=== PATIENT | female | born 1990 | race Caucasian/White ===

== ENCOUNTER 2017-01-05 11:46 | Inpatient (IN) | payer OTHER ==
[2017-01-05 12:31] VITALS: BMI 25.0
--- NOTE | 2017-01-05 12:59 | HP ---
COWS - Scale Resting Pulse: 2= [place] 101-120 Sweatin=Flushed/Facial Moisture Restless Observation: 3= Extraneous Movement Pupil Size: 0= Normal to Room Light Bone or Joint Aches: 2= Severe Diffuse Aches Runny Nose/ Eye Tearin= Runny Nose/Eyes GI Upset > 30mins: 3= Vomiting/Diarrhea Tremor Observation: 2= Slight Tremor Visible Yawning Observation: 1= 1-2x During Session Anxiety or Irritability: 2=Irritable/Anxious Goose Flesh Skin: 0=Smooth Skin COWS Score: 19 CIWA Score - CIWA Score Nausea/Vomitin Muscle Tremors: 3 Anxiety: 4-Mod. Anxious/Guarded Agitation: 3 Paroxysmal Sweats: 3 Orientation: 0-Oriented Tacttile Disturbances: 2-Mild Itch/Numbness/Burn Auditory Disturbances: 0-None Visual Disturbances: 0-None Headache: 0-None Present CIWA-Ar Total Score: 20 Admission ROS S - HPI Chief Complaint: "I have hit rock bottom and I need to get better for myself and for my father who has Stage 4 Cancer". Pt. is here to Detox from Heroin and Xanax. Allergies/Adverse Reactions: Allergies Allergy/AdvReac Type Severity Reaction Status Date / Time No Known Allergies Allergy Verified 01/05/17 12:35 History of Present Illness: Pt. is a 26 YO female here to detox from Heroin and Xanax (prescribed - patient reports that she takes more than prescribed on some days and tends to run out of monthly amount prematurely). Patient has had 1 previous Detox admission at [facility] (03/2016). Longest period of sobriety in recent past: 1 year (2014). Exam Limitations: No Limitations - Ebola screening Have you traveled outside of the country in the last 21 days: No Have you had contact with anyone from an Ebola affected area: No Have you been sick,other than usual withdrawal symptoms: No Do you have a fever: No - Review of Systems Constitutional: Chills, Diaphoresis, Fever, Malaise, Night Sweats, Changes in sleep, Other (Weight Gain:approx. 25 lbs. over last 8 months.) EENT: reports: No Symptoms Reported Respiratory: reports: No Symptoms reported Cardiac: reports: Palpitations GI: reports: Constipated, Nausea, Vomiting, Abdominal cramping : reports: No Symptoms Reported Musculoskeletal: reports: Joint Pain, Joint Stiffness Integumentary: reports: Sweating Neuro: reports: Headache, Tremors Endocrine: reports: No Symptoms Reported Hematology: reports: No Symptoms Reported Psychiatric: reports: Judgement Intact, Mood/Affect Appropiate, Orientated x3, Anxious (Takes Xanax.), Depressed (No Specific medication.), other (ADD - Takes Adderrall.) Other Systems: Reviewed and Negative Patient History - Patient Medical History Hx Anemia: No Hx Asthma: No Hx Chronic Obstructive Pulmonary Disease (COPD): No Hx Cancer: No Hx Cardiac Disorders: No Hx Congestive Heart Failure: No Hx Hypertension: No Hx Hypercholesterolemia: No Hx Pacemaker: No HX Cerebrovascular Accident: No Hx Seizures: No Hx Dementia: No Hx Diabetes: No Hx Gastrointestinal Disorders: No Hx Liver Disease: No Hx Genitourinary Disorders: No Hx Sexually Transmitted Disorders: No Hx Renal Disease (ESRD): No Hx Thyroid Disease: No Hx Human Immunodeficiency Virus (HIV): No (LAST TESTED: 03/2016: NEGATIVE) Hx Hepatitis C: No (LAST TESTED: 03/2016: NEGATIVE) Hx Depression: Yes (No Medication.) Hx Suicide Attempt: No (PATIENT DENIES CURRENT SI / HI.) Hx Bipolar Disorder: No Hx Schizophrenia: No Other Medical History: ADD - Takes Adderrall. - Patient Surgical History Past Surgical History: No Hx Neurologic Surgery: No Hx Cataract Extraction: No Hx Cardiac Surgery: No Hx Lung Surgery: No Hx Breast Surgery: No Hx Breast Biopsy: No Hx Abdominal Surgery: No Hx Appendectomy: No Hx Cholecystectomy: No Hx Genitourinary Surgery: No Hx Section: No Hx Orthopedic Surgery: No Hx Hysterectomy: No Anesthesia Reaction: No - PPD History Previous Implant?: Yes Documented Results: Negative w/proof Date: 04/02/16 Results: 0 mm PPD to be Administered?: No - Reproductive History Patient is a Female of Child Bearing Age (11 -55 yrs old): Yes Last Menstrual Period: 01/02/17 Patient : No - Smoking Cessation Smoking history: Current every day smoker Have you smoked in the past 12 months: Yes Aproximately how many cigarettes per day: 10 Cigars Per Day: 0 Hx Chewing Tobacco Use: No Initiated information on smoking cessation: No 'Breaking Loose' booklet given: 01/05/17 (GIVEN ON UNIT.) - Substance & Tx. History Hx Alcohol Use: No Hx Substance Use: Yes Substance Use Type: Heroin, Tranquilizers Hx Substance Use Treatment: Yes (1 Previous Detox admission at [facility] (03/2016). [facility] (2013).) - Substances Abused Heroin Route: Injection Frequency: Daily Amount used: 10 Bags. Age of first use: 22 Date of Last Use: 01/05/17 Alprazolam (Xanax) Route: Oral Frequency: Daily Amount used: 8 MG Age of first use: 24 Date of Last Use: 01/05/17 Family Disease History - Family Disease History Family Disease History: CA: Father (ALCOHOL; Rectal Ca.), Other: Father Admission Physical Exam S - Vital Signs Vital Signs: Vital Signs - 24 hr 01/05/17 12:25 Temperature 96.9 F L Pulse Rate 106 H Respiratory 20 Rate Blood Pressure 129/80 - Physical General Appearance: Yes: Nourished, Appropriately Dressed, Mild Distress, Tremorous, Sweating, Anxious HEENTM: Yes: Hearing grossly Normal, Normocephalic, Normal Voice, LOUIE, Pharynx Normal Respiratory: Yes: Chest Non-Tender, Lungs Clear, No Respiratory Distress Neck: Yes: No masses,lesions,Nodules, Supple, Trachea in good position Breast: Yes: Breast Exam Deferred Cardiology: Yes: Regular Rhythm, Regular Rate, S1, S2 Abdominal: Yes: Normal Bowel Sounds, Non Tender, Flat, Soft Genitourinary: Yes: Within Normal Limits Back: Yes: Normal Inspection Musculoskeletal: Yes: Gait Steady, Joint Stiffness Extremities: Yes: Tremors Neurological: Yes: Fully Oriented, Alert, Normal Mood/Affect, Normal Response Integumentary: Yes: Normal Color, Warm, Track Esquivel (Noted on Bilateral Forearms. Erythema and swelling noted at both sites. No bleeding or unusual discharge noted.) Lymphatic: Yes: Within Normal Limits - Diagnostic (1) Nicotine dependence Current Visit: Yes Status: Chronic Qualifiers: Nicotine product type: cigarettes Substance use status: uncomplicated Qualified Code(s): F17.210 - Nicotine dependence, cigarettes, uncomplicated (2) Abscess of forearm Current Visit: Yes Status: Acute Comment: Bilateral Forearms. (3) History of anxiety Current Visit: Yes Status: Chronic (4) ADHD (attention deficit hyperactivity disorder) Current Visit: Yes Status: Chronic Qualifiers: Attention deficit-hyperactivity disorder type: unspecified Qualified Code(s): F90.9 - Attention-deficit hyperactivity disorder, unspecified type (5) Opioid dependence with withdrawal Current Visit: Yes Status: Acute (6) Sedative, hypnotic or anxiolytic dependence with withdrawal, uncomplicated Current Visit: Yes Status: Acute Cleared for Admission [facility] - Detox or Rehab [facility] Level of Care: Medically Managed (PATIENT ADVISED TO FOLLOW-UP AFTER DISCHARGE FROM DETOX WITH SCIENTIFIC INVESTIGATOR FOR GENERAL MEDICAL ASSESSMENT AND WITH PSYCHIATRIST FOR HISTORY OF XANAX USE.) Detox Regimen/Protocol: Methadone/Valium [facility] Breath Alcohol Content Breath Alcohol Content: 0 Urine Pregancy Test - Result Urine Test Results: Negative- NO Line Present Urine Drug Screen - Results Drug Screen Negative: No Urine Drug Screen Results: MARQUES-Cocaine, OPI-Opiates, BZO-Benzodiazepines, TCA- Tricyclic Antidepress, OXY-Oxycodone
[2017-01-05] MEDS ORDERED: P-EPHED 60MG/TRIPROLIDI 2.5MG TABLET PO PRN (13:24)
[2017-01-05] MEDS ORDERED: NICOTINE POLACRILEX 2 MG GUM BUC PRN (13:24)
[2017-01-05] MEDS ORDERED: MENTHOL/PHENOL 1 EACH UD MM PRN (13:24)
[2017-01-05] MEDS ORDERED: ACETAMINOPHEN 325 MG TABLET (FP) PO PRN (13:24)
[2017-01-05] MEDS ORDERED: METHADONE HCL 10 MG TABLET (FOR DETOX USE ONLY) PO ONE ×2 (13:24→23:00)
[2017-01-05] MEDS ORDERED: MAGNESIUM CITRATE 300 ML BOTTLE PO PRN (13:24)
[2017-01-05] MEDS ORDERED: diphenhydrAMINE HCL 50 MG CAPSULE PO PRN (13:24)
[2017-01-05] MEDS ORDERED: diazePAM 5 MG TABLET PO ONE (13:24)
[2017-01-05] MEDS ORDERED: guaiFENesin/D-METHORPHAN HB 10 ML UNIT-DOSE CUPS PO PRN (13:24)
[2017-01-05] MEDS ORDERED: MAGNESIUM HYDROX 2400MG/30ML ORAL SUSPENSION 30 ML CUP PO PRN (13:24)
[2017-01-05] MEDS ORDERED: LOPERAMIDE HCL 2 MG CAPSULE PO PRN (13:24)
[2017-01-05] MEDS ORDERED: BACITRACIN 15 GM TUBE TOPICAL OINTMENT TP SCH (13:30)
[2017-01-05] MEDS: SULFAMETHOXAZOLE/TRIMETHOPRIM 800MG/160MG D.S. TABLET PO SCH ×2 (14:25→22:12)
[2017-01-05] MEDS: diazePAM 5 MG TABLET PO SCH ×2 (14:27→22:12)
[2017-01-05] MEDS: NICOTINE 21 MG/24 HOURS TOPICAL PATCH TD SCH (14:31)
--- NOTE | 2017-01-05 14:57 | CONSULT ---
[facility] Psychiatric Consult - Data Date of interview: 01/05/17 Admission source: [facility] Identifying data: Ms Mendez is a 26 years old single female, unemployed on food stamp, homeless seeking detox treatment for heroin and xanax Substance Abuse History: Reports history of heroin and xanax use. Started using heroin at age 22, consumes 10 bags daily. Last used on 01/05/17. Started using xanax at age 24, consumes 8 mg daily. Last used on 01/05/17 Medical History: Unremarkable. Smokes 10 cigarettes daily Psychiatric History: Reports being diagnosed with ADHD as a girl but did not start taking medication(Adderall) for it till 5-6 years ago. Reports being diagnosed with MDD at age 17 and was prescribed Prozac which she stopped taking on her own. At present, report no OPD care but takes Adderall XR 30 mg po daily prescribed by her primary care physician. Denies previous psychiatric hospitalization or suicidal attempt. At present, reports feeling anxious and sleeping poorly Physical/Sexual Abuse/Trauma History: Denies history of emotional, physical or sexual abuse as well as DV relationship Additional Comment: No criminal history Mental Status Exam - Mental Status Exam Alert and Oriented to: Time, Place, Person Cognitive Function: Fair Patient Appearance: Well Groomed Mood: Anxious, Euthymic Affect: Appropriate Patient Behavior: Cooperative Speech Pattern: Clear Voice Loudness: Normal Thought Process: Intact, Goal Oriented Thought Disorder: Not Present Hallucinations: Denies Suicidal Ideation: Denies Homicidal Ideation: Denies Insight/Judgement: Poor Sleep: Poorly Appetite: Good Muscle strength/Tone: Normal Gait/Station: Normal Psychiatric Findings - Problem List ([place] 1, 2,3) (1) ADHD (attention deficit hyperactivity disorder) Current Visit: Yes Status: Chronic Qualifiers: Attention deficit-hyperactivity disorder type: unspecified Qualified Code(s): F90.9 - Attention-deficit hyperactivity disorder, unspecified type (2) MDD (major depressive disorder) Current Visit: Yes Status: Acute (3) Opioid dependence with withdrawal Current Visit: Yes Status: Acute (4) Sedative, hypnotic or anxiolytic dependence with withdrawal, uncomplicated Current Visit: Yes Status: Acute (5) Nicotine dependence Current Visit: Yes Status: Chronic Qualifiers: Nicotine product type: cigarettes Substance use status: uncomplicated Qualified Code(s): F17.210 - Nicotine dependence, cigarettes, uncomplicated - Initial Treatment Plan Initial Treatment Plan: 1) Start Ritalin 5 mg po daily and Ambien 10 mg po HS prn for insomnia. 2) Continue inpatient detoxification
[2017-01-05] MEDS: diazePAM 5 MG TABLET PO PRN (19:20)
[2017-01-05 20:08] LABS: URINE APPEARANCE CLEAR; URINE BILIRUBIN NEGATIVE (NEGATIVE); URINE COLOR YELLOW; URINE GLUCOSE (UA) NEGATIVE (NEGATIVE); URINE KETONE NEGATIVE (NEGATIVE); URINE LEUK ESTERASE NEGATIVE (NEGATIVE); URINE NITRITE NEGATIVE (NEGATIVE); URINE PROTEIN NEGATIVE (NEGATIVE); URINE UROBILINOGEN NEGATIVE E.U./dl (0.2-1.0)
[2017-01-05 20:10] LABS: URINE BLOOD 1+ (NEGATIVE)
[2017-01-05 20:15] LABS: CALCIUM OXALATE CRYSTALS FEW /hpf (NONE SEEN); URINE BACTERIA RARE /hpf (NONE SEEN); URINE MUCUS FEW; URINE RBC 2 /hpf (0-3); URINE WBC 4 /hpf (3-5)
[2017-01-05] MEDS ORDERED: BACITRACIN 0.9 GM PACKET ONE (21:12)
[2017-01-05] MEDS: IBUPROFEN 400 MG TABLET (FP) PO PRN (21:42)
[2017-01-05] MEDS: BACITRACIN 15 GM TUBE TOPICAL OINTMENT TP SCH (22:11)
[2017-01-05] MEDS: DOCUSATE SODIUM 100 MG CAPSULE (FP) PO SCH (22:12)
[2017-01-05] MEDS: THIAMINE HCL 100 MG TABLET (FP) PO SCH (22:12)
[2017-01-05] MEDS: ZOLPIDEM TARTRATE 5 MG TABLET PO PRN (22:15)
[2017-01-06] MEDS: diazePAM 5 MG TABLET PO PRN ×3 (01:11→17:28)
[2017-01-06] MEDS: diazePAM 5 MG TABLET PO SCH ×3 (05:34→22:06)
[2017-01-06] MEDS ORDERED: METHADONE HCL 10 MG TABLET (FOR DETOX USE ONLY) PO SCH (10:00)
[2017-01-06] MEDS ORDERED: BACITRACIN 0.9 GM PACKET ONE (10:04)
--- NOTE | 2017-01-06 10:09 | PN ---
[facility] CIWA - CIWA Score Nausea/Vomitin Muscle Tremors: 3 Anxiety: 3 Agitation: 3 Paroxysmal Sweats: 1-Minimal Palms Moist Orientation: 0-Oriented Tacttile Disturbances: 1-Very Mild Itch/Numbness Auditory Disturbances: 1-Very Mild Visual Disturbances: 1-Very Mild Sensitivity Headache: 2-Mild CIWA-Ar Total Score: 18 BHS COWS - Scale Resting Pulse: 1= [place] 81-100 Sweatin= Chills/Flushing Restless Observation: 3= Extraneous Movement Pupil Size: 1= Pupils >than Normal Bone or Joint Aches: 2= Severe Diffuse Aches Runny Nose/ Eye Tearin= Runny Nose/Eyes GI Upset > 30mins: 3= Vomiting/Diarrhea Tremor Observation of Outstretched Hands: 2= Slight Tremor Visible Yawning Observation: 1= 1-2x During Session Anxiety or Irritability: 2=Irritable/Anxious Goose Flesh Skin: 0=Smooth Skin COWS Score: 18 [facility] Progress Note (SOAP) Subjective: ALERT,IRRITABLE,ANXIOUS,INTERRUPTED SLEEP,TREMOR,PAIN IN THE BODY AND BACK Objective: 01/06/17 10:07 Vital Signs Temperature 98.1 F 01/06/17 06:00 Pulse Rate 84 01/06/17 06:00 Respiratory Rate 18 01/06/17 06:00 Blood Pressure 91/59 01/06/17 06:00 O2 Sat by Pulse Oximetry (%) EKG NSR,NORMAL ECG Laboratory Last Values Urine Color Yellow 01/05/17 16:00 Urine Appearance Clear 01/05/17 16:00 Urine pH 5.0 (5.0-8.0) D 01/05/17 16:00 Ur Specific [place] 1.025 (1.005-1.025) 01/05/17 16:00 Urine Protein Negative (NEGATIVE) 01/05/17 16:00 Urine Glucose (UA) Negative (NEGATIVE) 01/05/17 16:00 Urine Ketones Negative (NEGATIVE) 01/05/17 16:00 Urine Blood 1+ (NEGATIVE) H 01/05/17 16:00 Urine Nitrite Negative (NEGATIVE) 01/05/17 16:00 Urine Bilirubin Negative (NEGATIVE) 01/05/17 16:00 Urine Urobilinogen Negative E.U./dl (0.2-1.0) 01/05/17 16:00 Ur Leukocyte Esterase Negative (NEGATIVE) 01/05/17 16:00 Urine RBC 2 /hpf (0-3) 01/05/17 16:00 Urine WBC 4 /hpf (3-5) 01/05/17 16:00 Ur Epithelial Cells Few /hpf (FEW) 01/05/17 16:00 Calcium Oxalate Crystal Few /hpf (NONE SEEN) 01/05/17 16:00 Urine Bacteria Rare /hpf (NONE SEEN) 01/05/17 16:00 Urine Mucus Few 01/05/17 16:00 LABS PENDING Assessment: 01/06/17 10:08 WITHDRAWAL SYMPTOM Plan: CONTINUE DETOX
[2017-01-06 10:17] LABS: MCH 29.6 pg (25.7-33.7); MCHC 33.8 g/dl (32.0-36.0); MEAN CELL VOLUME 87.5 fl (80-96); MEAN PLT VOLUME 7.5 fl (7.5-11.1); PLATELET COUNT 316 K/MM3 (134-434)
[2017-01-06] MEDS: METHYLPHENIDATE HCL 5 MG TABLET PO SCH (10:30)
[2017-01-06 10:31] LABS: ALBUMIN 3.7 g/dl (3.4-5.0); ANION GAP 9 (8-16); BILIRUBIN,TOTAL 0.3 mg/dL (0.2-1.0); CO2 24 mmol/L (21-32); GLUCOSE,RANDOM 105 mg/dL (74-106); SGOT/AST 20 U/L (15-37); SGPT/ALT 31 U/L (12-78); TOT PROT 7.6 g/dl (6.4-8.2)
[2017-01-06] MEDS: DOCUSATE SODIUM 100 MG CAPSULE (FP) PO SCH ×2 (10:31→22:08)
[2017-01-06] MEDS: NICOTINE 21 MG/24 HOURS TOPICAL PATCH TD SCH (10:31)
[2017-01-06] MEDS: BACITRACIN 15 GM TUBE TOPICAL OINTMENT TP SCH ×2 (10:31→22:07)
[2017-01-06] MEDS: SULFAMETHOXAZOLE/TRIMETHOPRIM 800MG/160MG D.S. TABLET PO SCH ×2 (10:31→22:06)
[2017-01-06] MEDS: PRENATAL VITAMINS W/ FOLIC ACID TABLET (FP) PO SCH (10:31)
[2017-01-06 10:32] LABS: ALK PHOS 143 U/L (45-117); CALCIUM 9.1 mg/dL (8.5-10.1); CREATININE 0.6 mg/dL (0.55-1.02)
[2017-01-06] MEDS: cloNIDine HCL 0.1 MG TABLET PO SCH ×2 (11:40→22:06)
--- NOTE | 2017-01-06 14:23 | EKG ---
Test Reason : Blood Pressure : / mmHG Vent. Rate : 094 BPM Atrial Rate : 094 BPM P-R Int : 128 ms QRS Dur : 076 ms QT Int : 358 ms P-R-T Axes : 025 -18 030 degrees QTc Int : 447 ms NORMAL SINUS RHYTHM MINIMAL VOLTAGE CRITERIA FOR LVH, MAY BE NORMAL VARIANT BORDERLINE ECG NO PREVIOUS ECGS AVAILABLE Confirmed by LALO EMANUEL MD ([id number]) on 01/06/2017 2:23:06 PM Referred By: Confirmed By:LALO EMANUEL MD
[2017-01-06] MEDS: MAG HYDROX/AL HYDROX/SIMETH 30 ML UNIT-DOSE CUP PO PRN (17:09)
[2017-01-06] MEDS: ZOLPIDEM TARTRATE 5 MG TABLET PO PRN (22:06)
[2017-01-06] MEDS: THIAMINE HCL 100 MG TABLET (FP) PO SCH (22:06)
[2017-01-07] MEDS ORDERED: BACITRACIN 0.9 GM PACKET ONE (09:09)
[2017-01-07] MEDS: cloNIDine HCL 0.1 MG TABLET PO SCH ×2 (10:06→22:09)
[2017-01-07] MEDS: PRENATAL VITAMINS W/ FOLIC ACID TABLET (FP) PO SCH (10:06)
[2017-01-07] MEDS: DOCUSATE SODIUM 100 MG CAPSULE (FP) PO SCH ×2 (10:06→22:11)
[2017-01-07] MEDS: SULFAMETHOXAZOLE/TRIMETHOPRIM 800MG/160MG D.S. TABLET PO SCH ×2 (10:06→22:09)
[2017-01-07] MEDS: METHADONE HCL 5 MG TABLET (FOR DETOX USE ONLY) PO SCH (10:07)
[2017-01-07] MEDS: BACITRACIN 15 GM TUBE TOPICAL OINTMENT TP SCH ×2 (10:07→22:09)
[2017-01-07] MEDS: METHYLPHENIDATE HCL 5 MG TABLET PO SCH (10:07)
[2017-01-07] MEDS: NICOTINE 21 MG/24 HOURS TOPICAL PATCH TD SCH (10:08)
[2017-01-07] MEDS: diazePAM 5 MG TABLET PO SCH ×2 (10:11→22:09)
--- NOTE | 2017-01-07 11:02 | PN ---
[facility] CIWA - CIWA Score Nausea/Vomitin Muscle Tremors: 3 Anxiety: 3 Agitation: 2 Paroxysmal Sweats: 1-Minimal Palms Moist Orientation: 0-Oriented Tacttile Disturbances: 1-Very Mild Itch/Numbness Auditory Disturbances: 1-Very Mild Visual Disturbances: 1-Very Mild Sensitivity Headache: 2-Mild CIWA-Ar Total Score: 17 BHS COWS - Scale Resting Pulse: 1= [place] 81-100 Sweatin= Chills/Flushing Restless Observation: 3= Extraneous Movement Pupil Size: 1= Pupils >than Normal Bone or Joint Aches: 2= Severe Diffuse Aches Runny Nose/ Eye Tearin= Runny Nose/Eyes GI Upset > 30mins: 3= Vomiting/Diarrhea Tremor Observation of Outstretched Hands: 2= Slight Tremor Visible Yawning Observation: 1= 1-2x During Session Anxiety or Irritability: 2=Irritable/Anxious Goose Flesh Skin: 0=Smooth Skin COWS Score: 18 S Progress Note (SOAP) Subjective: ALERT,IRRITABLE,ANXIOUS,INTERRUPTED SLEEP,TREMOR Objective: 01/07/17 11:01 Vital Signs Temperature 97.5 F L 01/07/17 09:29 Pulse Rate 78 01/07/17 09:29 Respiratory Rate 18 01/07/17 09:29 Blood Pressure 125/75 01/07/17 09:29 O2 Sat by Pulse Oximetry (%) Laboratory Last Values WBC 8.0 K/mm3 (4.0-10.0) 01/06/17 07:00 RBC 4.38 M/mm3 (3.60-5.2) 01/06/17 07:00 Hgb 13.0 GM/dL (10.7-15.3) 01/06/17 07:00 Hct 38.4 % (32.4-45.2) 01/06/17 07:00 MCV 87.5 fl (80-96) 01/06/17 07:00 MCHC 33.8 g/dl (32.0-36.0) 01/06/17 07:00 RDW 13.0 % (11.6-15.6) 01/06/17 07:00 Plt Count 316 K/MM3 (134-434) 01/06/17 07:00 MPV 7.5 fl (7.5-11.1) 01/06/17 07:00 Sodium 139 mmol/L (136-145) 01/06/17 07:00 Potassium 4.5 mmol/L (3.5-5.1) 01/06/17 07:00 Chloride 106 mmol/L (98-107) 01/06/17 07:00 Carbon Dioxide 24 mmol/L (21-32) 01/06/17 07:00 Anion Gap 9 (8-16) 01/06/17 07:00 BUN 12 mg/dL (7-18) 01/06/17 07:00 Creatinine 0.6 mg/dL (0.55-1.02) 01/06/17 07:00 Creat Clearance w eGFR > 60 (>60) 01/06/17 07:00 Random Glucose 105 mg/dL (74-106) 01/06/17 07:00 Calcium 9.1 mg/dL (8.5-10.1) 01/06/17 07:00 Total Bilirubin 0.3 mg/dL (0.2-1.0) D 01/06/17 07:00 AST 20 U/L (15-37) D 01/06/17 07:00 ALT 31 U/L (12-78) 01/06/17 07:00 Alkaline Phosphatase 143 U/L (45-117) H 01/06/17 07:00 Total Protein 7.6 g/dl (6.4-8.2) 01/06/17 07:00 Albumin 3.7 g/dl (3.4-5.0) 01/06/17 07:00 Urine Color Yellow 01/05/17 16:00 Urine Appearance Clear 01/05/17 16:00 Urine pH 5.0 (5.0-8.0) D 01/05/17 16:00 Ur Specific [place] 1.025 (1.005-1.025) 01/05/17 16:00 Urine Protein Negative (NEGATIVE) 01/05/17 16:00 Urine Glucose (UA) Negative (NEGATIVE) 01/05/17 16:00 Urine Ketones Negative (NEGATIVE) 01/05/17 16:00 Urine Blood 1+ (NEGATIVE) H 01/05/17 16:00 Urine Nitrite Negative (NEGATIVE) 01/05/17 16:00 Urine Bilirubin Negative (NEGATIVE) 01/05/17 16:00 Urine Urobilinogen Negative E.U./dl (0.2-1.0) 01/05/17 16:00 Ur Leukocyte Esterase Negative (NEGATIVE) 01/05/17 16:00 Urine RBC 2 /hpf (0-3) 01/05/17 16:00 Urine WBC 4 /hpf (3-5) 01/05/17 16:00 Ur Epithelial Cells Few /hpf (FEW) 01/05/17 16:00 Calcium Oxalate Crystal Few /hpf (NONE SEEN) 01/05/17 16:00 Urine Bacteria Rare /hpf (NONE SEEN) 01/05/17 16:00 Urine Mucus Few 01/05/17 16:00 RPR Titer Nonreactive (NONREACTIVE) 01/06/17 07:00 Hepatitis C Antibody <0.1 s/co ratio (0.0-0.9) 01/05/17 07:00 Assessment: 01/07/17 11:01 WITHDRAWAL SYMPTOM Plan: CONTINUE DETOX
[2017-01-07] MEDS: diazePAM 5 MG TABLET PO PRN ×2 (12:28→16:55)
[2017-01-07] MEDS: THIAMINE HCL 100 MG TABLET (FP) PO SCH (22:08)
[2017-01-07] MEDS: ZOLPIDEM TARTRATE 5 MG TABLET PO PRN (22:09)
[2017-01-08] MEDS: diazePAM 5 MG TABLET PO PRN ×2 (05:53→12:50)
--- NOTE | 2017-01-08 09:18 | PN ---
S Progress Note (SOAP) Subjective: ALERT,IRRITABLE,ANXIOUS,INTERRUPTED SLEEP,TREMOR,PAIN IN THE BODY AND BACK Objective: 01/08/17 09:17 Vital Signs Temperature 97.5 F L 01/08/17 06:05 Pulse Rate 71 01/08/17 06:05 Respiratory Rate 18 01/08/17 06:05 Blood Pressure 106/65 01/08/17 06:05 O2 Sat by Pulse Oximetry (%) Assessment: 01/08/17 09:17 WITHDRAWAL SYMPTOM Plan: CONTINUE DETOX,PATIENT REQUESTED HIV TEST,ORDERED
[2017-01-08] MEDS: cloNIDine HCL 0.1 MG TABLET PO SCH ×2 (10:29→22:12)
[2017-01-08] MEDS: DOCUSATE SODIUM 100 MG CAPSULE (FP) PO SCH ×2 (10:29→22:29)
[2017-01-08] MEDS: PRENATAL VITAMINS W/ FOLIC ACID TABLET (FP) PO SCH (10:29)
[2017-01-08] MEDS: METHADONE HCL 5 MG TABLET (FOR DETOX USE ONLY) PO SCH (10:30)
[2017-01-08] MEDS: CYCLOBENZAPRINE HCL 10 MG TABLET (FP) PO PRN (10:30)
[2017-01-08] MEDS: SULFAMETHOXAZOLE/TRIMETHOPRIM 800MG/160MG D.S. TABLET PO SCH ×2 (10:30→22:12)
[2017-01-08] MEDS: diazePAM 5 MG TABLET PO SCH ×2 (10:30→22:12)
[2017-01-08] MEDS: NICOTINE 21 MG/24 HOURS TOPICAL PATCH TD SCH (10:31)
[2017-01-08] MEDS: METHYLPHENIDATE HCL 5 MG TABLET PO SCH (10:31)
[2017-01-08] MEDS: BACITRACIN 15 GM TUBE TOPICAL OINTMENT TP SCH ×2 (10:33→22:12)
[2017-01-08 11:05] LABS: HIV 1 & 2 AB NEGATIVE; HIV 1 AGp24 NEGATIVE
[2017-01-08] MEDS: ZOLPIDEM TARTRATE 5 MG TABLET PO PRN (22:12)
[2017-01-08] MEDS: THIAMINE HCL 100 MG TABLET (FP) PO SCH (22:12)
[2017-01-08] MEDS: IBUPROFEN 400 MG TABLET (FP) PO PRN (23:43)
[2017-01-09] MEDS: hydrOXYzine PAMOATE 50 MG CAPSULE (FP) PO PRN ×3 (05:57→23:19)
--- NOTE | 2017-01-09 09:47 | PN ---
S Progress Note (SOAP) Subjective: ALERT,IRRITABLE,INTERRUPTED SLEEP Objective: 01/09/17 09:45 Vital Signs Temperature 97.3 F L 01/09/17 09:25 Pulse Rate 80 01/09/17 09:25 Respiratory Rate 18 01/09/17 09:25 Blood Pressure 103/58 01/09/17 09:25 O2 Sat by Pulse Oximetry (%) 01/09/17 09:46 Laboratory Results - last 24 hr 01/08/17 08:50 HIV 1&2 Antibody Screen Negative HIV P24 Antigen Negative Assessment: 01/09/17 09:46 WITHDRAWAL SYMPTOM Plan: CONTINUE DETOX,DISCHARGE IN AM
[2017-01-09] MEDS ORDERED: diazePAM 5 MG TABLET PO SCH (10:00)
[2017-01-09] MEDS ORDERED: METHADONE HCL 10 MG TABLET (FOR DETOX USE ONLY) PO SCH (10:00)
[2017-01-09] MEDS: METHYLPHENIDATE HCL 5 MG TABLET PO SCH (10:45)
[2017-01-09] MEDS: SULFAMETHOXAZOLE/TRIMETHOPRIM 800MG/160MG D.S. TABLET PO SCH ×2 (10:45→22:08)
[2017-01-09] MEDS: CYCLOBENZAPRINE HCL 10 MG TABLET (FP) PO PRN (10:45)
[2017-01-09] MEDS: cloNIDine HCL 0.1 MG TABLET PO SCH ×2 (10:45→22:08)
[2017-01-09] MEDS: PRENATAL VITAMINS W/ FOLIC ACID TABLET (FP) PO SCH (10:45)
[2017-01-09] MEDS: DOCUSATE SODIUM 100 MG CAPSULE (FP) PO SCH ×2 (10:46→22:09)
[2017-01-09] MEDS: NICOTINE 21 MG/24 HOURS TOPICAL PATCH TD SCH (10:46)
[2017-01-09] MEDS: BACITRACIN 15 GM TUBE TOPICAL OINTMENT TP SCH ×2 (10:46→22:09)
[2017-01-09] MEDS: IBUPROFEN 400 MG TABLET (FP) PO PRN (19:59)
[2017-01-09] MEDS: MAG HYDROX/AL HYDROX/SIMETH 30 ML UNIT-DOSE CUP PO PRN (20:01)
[2017-01-09] MEDS: THIAMINE HCL 100 MG TABLET (FP) PO SCH (22:08)
[2017-01-09] MEDS: ZOLPIDEM TARTRATE 5 MG TABLET PO PRN (22:08)
[2017-01-10] MEDS ORDERED: METHADONE HCL 5 MG TABLET (FOR DETOX USE ONLY) PO SCH (06:00)
--- NOTE | 2017-01-10 08:35 | DS ---
[facility] Detox Discharge Summary Admission Date: 01/05/17 Discharge Date: 01/10/17 - History Present History: Opioid Dependence, Sedative Dependence Additional Comments: FOLLOW UP WITH AFTER CARE PROGRAM ARRANGEMENT Pertinent Past History: NICOTINE DEPENDENCE ABSCESS OF FOREARM ADHD - Physical Exam Results Vital Signs: Vital Signs Temperature 97.3 F L 01/10/17 06:00 Pulse Rate 61 01/10/17 06:00 Respiratory Rate 18 01/10/17 06:00 Blood Pressure 102/59 01/10/17 06:00 O2 Sat by Pulse Oximetry (%) Pertinent Admission Physical Exam Findings: WITHDRAWAL SYMPTOM - Treatment Hospital Course: Detox Protocol Followed, Detoxed Safely, Responded well, Discharged Condition Good, Rehab Referral Accepted Patient has Accepted a Rehab Referral to: [facility] - Medication Discharge Medications: Ambulatory Orders Dextroamphetamine/Amphetamine [Adderall Xr 30 mg Capsule] 30 mg PO BID 03/31/16 Sulfamethoxazole/Trimethoprim [Bactrim DS -] 1 each PO BID #10 tablet 01/10/17 - Diagnosis (1) Abscess of forearm Current Visit: Yes Status: Acute (2) Opioid dependence with withdrawal Current Visit: Yes Status: Acute (3) Sedative, hypnotic or anxiolytic dependence with withdrawal, uncomplicated Current Visit: Yes Status: Acute (4) ADD (attention deficit disorder) Current Visit: Yes Status: Chronic Qualifiers: Hyperactivity presence: unspecified Qualified Code(s): F98.8 - Other specified behavioral and emotional disorders with onset usually occurring in childhood and adolescence (5) Nicotine dependence Current Visit: Yes Status: Chronic Qualifiers: Nicotine product type: cigarettes Substance use status: uncomplicated Qualified Code(s): F17.210 - Nicotine dependence, cigarettes, uncomplicated - AMA Did Patient Leave Against Medical Advice: No
[2017-01-10] MEDS: METHYLPHENIDATE HCL 5 MG TABLET PO SCH (09:26)
[2017-01-10] MEDS: cloNIDine HCL 0.1 MG TABLET PO SCH (09:26)
[2017-01-10] MEDS: SULFAMETHOXAZOLE/TRIMETHOPRIM 800MG/160MG D.S. TABLET PO SCH (09:26)
[2017-01-10] MEDS: PRENATAL VITAMINS W/ FOLIC ACID TABLET (FP) PO SCH (09:26)
[2017-01-10 10:54] VITALS: BP 149/56; PULSE 86; TEMP 98.4
[2017-01-10] MEDS: BACITRACIN 15 GM TUBE TOPICAL OINTMENT TP SCH (11:41)
[2017-01-10] MEDS: DOCUSATE SODIUM 100 MG CAPSULE (FP) PO SCH (11:41)
[2017-01-10] MEDS: NICOTINE 21 MG/24 HOURS TOPICAL PATCH TD SCH (11:42)
== END 2017-01-10 12:24 | disposition home or self-care (01) | DRG 773 ==
LOC: YASAS 11:46 → Y6N 13:15
PROVIDERS: ADMIT Internal Medicine; ATTEND Internal Medicine
PROC: HZ2ZZZZ Detoxification Services for Substance Abuse Treatment (ICD-10-PCS; principal; 2017-01-05)
DX: F11.23 Opioid dependence with withdrawal (principal); F13.230 Sedative, hypnotic or anxiolytic dependence with withdrawal, uncomplicated; F17.210 Nicotine dependence, cigarettes, uncomplicated; F90.9 Attention-deficit hyperactivity disorder, unspecified type; F34.1 Dysthymic disorder; L02.414 Cutaneous abscess of left upper limb; L02.413 Cutaneous abscess of right upper limb
CPT/HCPCS: 36415; 80053; 81003; 81015; 85027; 86593; 86803; 87389; 93005; 93010